=== PATIENT | female | born 1950 | race Caucasian/White ===

== ENCOUNTER 2020-08-12 12:33 | Emergency (ER) | payer OTHER ==
[~2020-08-12 12:33] MED LIST: LEVAQUIN500 MG PO
[2020-08-12 13:31] LABS: RED BLOOD COUNT 4.12 M/UL (4.00-5.10); WHITE BLOOD COUNT 5.7 K/UL (4.5-11.0)
[2020-08-12 14:10] LABS: BUN/CREATININE RATIO 23 (0-10)
[2020-08-12] MEDS ORDERED: MOBIC15 MG PO (16:42)
[2020-08-12] MEDS ORDERED: FOLIC ACID 1 MG1 MG PO (16:50)
== END 2020-08-12 16:55 | disposition home or self-care (01) ==
LOC: ER1 12:33
DX: M25.512 Pain in left shoulder (principal); R07.89 Other chest pain; Z79.899 Other long term (current) drug therapy
CPT/HCPCS: 71045; 73030; 80053; 82550; 82553; 83874; 84484; 85025; 85379; 93005; 99284